=== PATIENT | female | born 1945 | race Caucasian/White ===

== ENCOUNTER → 2023-12-16 14:27 | Outpatient (CLI) | payer OTHER, SELFPAY ==
--- NOTE | 2023-12-16 | DI.US.S_ITS ---
PROCEDURE: US PERIPH VENOUS LOW EXTREM BI INDICATIONS: bilat leg swelling TECHNIQUE: Real-time imaging, as well as color and pulse Doppler interrogation, were performed of the deep veins of both legs from the inguinal ligament to the popliteal fossa, with documentation of the visualized calf veins. COMPARISON: None. FINDINGS: Right: The common femoral, femoral, popliteal, and the visualized calf veins are normally compressible, and free of intraluminal thrombus. Color and pulse Doppler demonstrate normal phasic intravascular flow. There is normal augmentation response to distal compression maneuver. Left: There is chronic appearing nonocclusive thrombus seen within the left popliteal vein. IMPRESSION: A small amount of nonocclusive thrombus can be seen within the left popliteal vein, which is likely chronic. No right-sided deep venous thrombosis can be seen. Dictated by: Rubens Hernandez M.D. on 12/16/2023 at 15:49 Approved by: Rubens Hernandez M.D. on 12/16/2023 at 15:49
== END ==
PROVIDERS: PCP Physician Assistant; Referring Provider Physician Assistant; Visit Provider Physician Assistant
DX: I82.432 Acute embolism and thrombosis of left popliteal vein (principal); R60.0 Localized edema; R09.89 Other specified symptoms and signs involving the circulatory and respiratory systems
CPT/HCPCS: 93970

== ENCOUNTER → 2024-05-27 13:45 | Outpatient (CLI) | payer OTHER, SELFPAY ==
--- NOTE | 2024-05-27 13:49 | DI.US.S_ITS ---
PROCEDURE: US PERIP VENOUS LOW EXTREM BI INDICATIONS: Chronic embolism and thrombosis of left popliteal TECHNIQUE: Real-time imaging, as well as color and pulse Doppler interrogation, were performed of the deep veins of both legs from the inguinal ligament to the popliteal fossa, with documentation of the visualized calf veins. COMPARISON: [facility], , [facility] VENOUS LOW EXTREM BI, 12/16/2023, 15:25. FINDINGS: Right: The common femoral, femoral, popliteal, and the visualized calf veins are normally compressible, and free of intraluminal thrombus. Color and pulse Doppler demonstrate normal phasic intravascular flow. There is normal augmentation response to distal compression maneuver. Left: The common femoral, femoral, popliteal, and the visualized calf veins are normally compressible, and free of intraluminal thrombus. Color and pulse Doppler demonstrate normal phasic intravascular flow. There is normal augmentation response to distal compression maneuver. Chronic appearing intraluminal filling defect within left popliteal vein is seen. IMPRESSION: No findings of acute DVT in visualized bilateral lower extremity veins. 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 Dictated by: William Merritt M.D. on 05/27/2024 at 16:32 Approved by: William Merritt M.D. on 05/27/2024 at 16:33
== END ==
PROVIDERS: PCP Physician Assistant; Referring Provider Student in an Organized Health Care Education/Training Program; Visit Provider Student in an Organized Health Care Education/Training Program
DX: I82.532 Chronic embolism and thrombosis of left popliteal vein (principal); M71.21 Synovial cyst of popliteal space [Baker], right knee
CPT/HCPCS: 93970